=== PATIENT | female | born 1975 | race Caucasian/White ===

== ENCOUNTER 2017-04-02 18:19 | Emergency (ER) | payer MEDICARE, MEDICAID ==
[2014-04-01 01:23] VITALS: BMI 30.6
[~2017-04-02 18:19] MED LIST: ADVAIR 100/501 DISK INH; BAYER CHEWABLE81 MG PO; BRILINTA90 MG PO; CYMBALTA60 MG PO; DEPAKOTE250 MG PO; DEPAKOTE500 MG PO; MIRALAX17 GM PO; NITRO-DUR0.4 MG TD; NORCO 7.5/325 T1 TA1 PO; PEPCID40 MG PO; PROAIR HFA8.5 GM INH; VALIUM10 MG PO; ZOCOR40 MG PO
[2017-04-02 19:17] LABS: BASOPHILS 0.4 % (0-2); EOSINOPHILS 1.2 % (0-7); HEMATOCRIT 38.1 % (36.0-48.0); HEMOGLOBIN 13.2 g/dL (12-16); IMMATURE GRANULOCYTES 0.3 % (0-5); LYMPHOCYTES 36.8 % (15-50); MCH 31.8 pg (26.0-34.0); MCHC 34.6 g/dL (31.0-37.0); MCV 91.8 fL (80.0-100.0); MEAN PLATELET VOLUME 9.5 fL (7.4-10.4); MONOCYTES 7.7 % (2-11); NEUTROPHILS 53.6 % (40-80); PLATELET COUNT 245 10x3/uL (130-400); RBC 4.15 10x6/uL (4.00-5.40); RDW 13.4 % (11.5-14.5); WBC 10.4 10x3/uL (4.8-10.8)
[2017-04-02 19:55] LABS: ALBUMIN 3.7 g/dL (3.4-5.0); ALKALINE PHOSPHATASE 84 U/L (46-116); ALT (SGPT) 23 U/L (10-68); BILIRUBIN - TOTAL 0.25 mg/dL (0.2-1.3); CALC OSMOLALITY 272 mosm/kg (275-300); CALCIUM 8.8 mg/dL (8.5-10.1); CARBON DIOXIDE 24.5 mmol/L (21.0-32.0); CHLORIDE - SERUM 104 mmol/L (98-107); CREATININE - SERUM 0.9 mg/dL (0.6-1.3); GLUCOSE 80 mg/dL (74-106); PROTEIN - SERUM 7.2 g/dL (6.4-8.2); SODIUM 137 mmol/L (136-145); UREA NITROGEN 13 mg/dL (7-18); eGFR NON AFRICAN AMERICAN 72 mL/min (90-120)
[2017-04-02 19:59] LABS: UDS - AMPHET NEGATIVE QUAL (NEGATIVE); UDS - BARB NEGATIVE QUAL (NEGATIVE); UDS - BENZO NEGATIVE QUAL (NEGATIVE); UDS - COCAINE NEGATIVE QUAL (NEGATIVE); UDS - METH NEGATIVE QUAL (NEGATIVE); UDS - OPIATE NEGATIVE QUAL (NEGATIVE); UDS - PCP NEGATIVE QUAL (NEGATIVE); UDS - THC NEGATIVE QUAL (NEGATIVE)
[2017-04-02 20:05] LABS: CHOL - HDL RATIO 5.2 ratio (2.3-4.1); CHOLESTEROL, TOTAL 247 mg/dL (0-200); CKMB 0.5 U/L (0.0-3.6); CREATINE KINASE 77 UL (21-215); HDL CHOLESTEROL 48 mg/dL (32-96); LDL CHOLESTEROL 149 mg/dL (0-100); LDL-HDL RATIO 3.1 ratio (1.5-3.5); PRO BNP 73 pg/mL (0-125); TRIGLYCERIDE 251 mg/dL (30-200); TROPONIN-I < 0.017 ng/mL (0.000-0.060)
[2017-04-02 20:44] LABS: APPEARANCE CLOUDY (CLEAR)
[2017-04-02 20:45] LABS: BACTERIA MANY /hpf (NONE SEEN); BILIRUBIN NEGATIVE (NEGATIVE); COLOR YELLOW (YELLOW); EPITHELIAL CELLS 0-5 /hpf (0-5); GLUCOSE NEGATIVE (NEGATIVE); KETONE NEGATIVE (NEGATIVE); LEUKOCYTE ESTERASE 1+ (NEGATIVE); NITRITE POSITIVE (NEGATIVE); PROTEIN NEGATIVE (NEGATIVE); RED CELLS - URINE 0-5 /hpf (0-5); SPECIFIC GRAVITY 1.015 (1.005-1.020); UROBILINOGEN NORMAL (NORMAL)
[2017-04-02 23:00] LABS: CKMB 0.6 U/L (0.0-3.6); CREATINE KINASE 85 UL (21-215)
[2017-04-02 23:06] LABS: TROPONIN-I < 0.017 ng/mL (0.000-0.060)
== END 2017-04-02 23:33 | disposition left against medical advice (07) ==
LOC: D.ER 18:19
PROVIDERS: Emergency Medicine; Family Medicine
DX: R07.9 Chest pain, unspecified (principal); K21.9 Gastro-esophageal reflux disease without esophagitis; N39.0 Urinary tract infection, site not specified; F31.89 Other bipolar disorder; I50.9 Heart failure, unspecified; J44.9 Chronic obstructive pulmonary disease, unspecified; R53.81 Other malaise; R53.83 Other fatigue; R00.2 Palpitations; R06.00 Dyspnea, unspecified; R11.0 Nausea; F17.200 Nicotine dependence, unspecified, uncomplicated

== ENCOUNTER 2017-08-03 02:27 | Emergency (ER) | payer MEDICARE, MEDICAID ==
[2014-04-01 01:23] VITALS: BMI 30.6
== END 2017-08-03 03:10 | disposition home or self-care (01) ==
LOC: D.ER 02:27
DX: M54.5 Low back pain (principal); S29.012A Strain of muscle and tendon of back wall of thorax, initial encounter; X50.0XXA Overexertion from strenuous movement or load, initial encounter; Y93.89 Activity, other specified; Y92.019 Unspecified place in single-family (private) house as the place of occurrence of the external cause; S39.012A Strain of muscle, fascia and tendon of lower back, initial encounter; I50.9 Heart failure, unspecified; J44.9 Chronic obstructive pulmonary disease, unspecified; K21.9 Gastro-esophageal reflux disease without esophagitis; F17.200 Nicotine dependence, unspecified, uncomplicated

== ENCOUNTER 2017-09-15 13:32 | Emergency (ER) | payer MEDICARE, MEDICAID ==
[2014-04-01 01:23] VITALS: BMI 30.6
[2017-09-15 15:09] LABS: BASOPHILS 0.3 % (0-2); HEMATOCRIT 36.2 % (36.0-48.0); IMMATURE GRANULOCYTES 0.3 % (0-5); LYMPHOCYTES 32.9 % (15-50); MCH 30.5 pg (26.0-34.0); MCHC 33.1 g/dL (31.0-37.0); MCV 91.9 fL (80.0-100.0); MEAN PLATELET VOLUME 9.6 fL (7.4-10.4); MONOCYTES 6.7 % (2-11); NEUTROPHILS 58.8 % (40-80); PLATELET COUNT 258 10x3/uL (130-400); RBC 3.94 10x6/uL (4.00-5.40); RDW 14.4 % (11.5-14.5); WBC 9.9 10x3/uL (4.8-10.8)
[2017-09-15 15:54] LABS: ALBUMIN 3.6 g/dL (3.4-5.0); BILIRUBIN - TOTAL 0.15 mg/dL (0.2-1.3); CALCIUM 8.7 mg/dL (8.5-10.1); CARBON DIOXIDE 25.3 mmol/L (21.0-32.0); POTASSIUM - SERUM 4.3 mmol/L (3.5-5.1); PROTEIN - SERUM 7.5 g/dL (6.4-8.2)
== END 2017-09-15 17:08 | disposition home or self-care (01) ==
LOC: D.ER 13:32
PROVIDERS: Family Medicine; Physician Assistant Medical
DX: H66.92 Otitis media, unspecified, left ear (principal); M26.69 Other specified disorders of temporomandibular joint; F17.200 Nicotine dependence, unspecified, uncomplicated; I50.9 Heart failure, unspecified; J44.9 Chronic obstructive pulmonary disease, unspecified

== ENCOUNTER 2017-10-02 19:22 | Emergency (ER) | payer MEDICARE, MEDICAID ==
[2014-04-01 01:23] VITALS: BMI 30.6
== END 2017-10-02 21:08 | disposition home or self-care (01) ==
LOC: D.ER 19:22
DX: S16.1XXA Strain of muscle, fascia and tendon at neck level, initial encounter (principal); Y93.72 Activity, wrestling; Y93.89 Activity, other specified; Y92.019 Unspecified place in single-family (private) house as the place of occurrence of the external cause; M62.838 Other muscle spasm; J44.9 Chronic obstructive pulmonary disease, unspecified; K21.9 Gastro-esophageal reflux disease without esophagitis; F17.200 Nicotine dependence, unspecified, uncomplicated

== ENCOUNTER 2018-11-28 19:51 | Emergency (ER) | payer MEDICARE ==
[~2018-11-28] VITALS: Ht 170.2 cm; Wt 86.4 kg
[2018-11-28 19:55] VITALS: Ht 170.2 cm; Wt 86.4 kg
[2018-11-28 20:43] VITALS: BP 127/65
== END 2018-11-28 20:43 | disposition home or self-care (01) ==
LOC: D.ER 19:51
DX: F41.9 Anxiety disorder, unspecified (principal)

== ENCOUNTER 2019-09-08 18:56 | Emergency (ER) | payer MEDICARE, MEDICAID ==
[~2019-09-08] VITALS: Ht 170.2 cm; Wt 77.3 kg
[2019-09-08 19:03] VITALS: Ht 170.2 cm; Wt 77.3 kg
[2019-09-08] MEDS ORDERED: CYCLOBENZAPRINE10 MG PO (20:28)
[2019-09-08 20:44] VITALS: BP 117/67
== END 2019-09-08 20:44 | disposition home or self-care (01) ==
LOC: D.ER 18:56
DX: S16.1XXA Strain of muscle, fascia and tendon at neck level, initial encounter (principal); S93.401A Sprain of unspecified ligament of right ankle, initial encounter; S63.501A Unspecified sprain of right wrist, initial encounter; W19.XXXA Unspecified fall, initial encounter; Y93.9 Activity, unspecified; Y92.9 Unspecified place or not applicable; J44.9 Chronic obstructive pulmonary disease, unspecified; Z72.0 Tobacco use

== ENCOUNTER 2019-09-17 15:23 | Emergency (ER) | payer MEDICARE, MEDICAID ==
[~2019-09-17] VITALS: Ht 170.2 cm; Wt 77.3 kg
[~2019-09-17 15:23] MED LIST changes: +CYCLOBENZAPRINE10 MG PO
[2019-09-17 15:36] VITALS: Ht 170.2 cm; Wt 77.3 kg
[2019-09-17 16:07] LABS: UDS - AMPHET NEGATIVE QUAL (NEGATIVE); UDS - BARB NEGATIVE QUAL (NEGATIVE); UDS - BENZO NEGATIVE QUAL (NEGATIVE); UDS - COCAINE NEGATIVE QUAL (NEGATIVE); UDS - OPIATE POSITIVE QUAL (NEGATIVE); UDS - PCP NEGATIVE QUAL (NEGATIVE); UDS - THC NEGATIVE QUAL (NEGATIVE)
[2019-09-17 16:09] LABS: APPEARANCE CLEAR (CLEAR); BILIRUBIN NEGATIVE (NEGATIVE); COLOR YELLOW (YELLOW); GLUCOSE NEGATIVE (NEGATIVE); KETONE NEGATIVE (NEGATIVE); NITRITE NEGATIVE (NEGATIVE); PROTEIN NEGATIVE (NEGATIVE); UROBILINOGEN NORMAL (NORMAL)
[2019-09-17 16:10] LABS: BASOPHILS 0.7 % (0-2); EOSINOPHILS 1.8 % (0-7); HEMATOCRIT 40.5 % (36.0-48.0); HEMOGLOBIN 13.6 g/dL (12-16); IMMATURE GRANULOCYTES 0.3 % (0-5); LYMPHOCYTES 39.5 % (15-50); MCHC 33.6 g/dL (31.0-37.0); MCV 92.3 fL (80.0-100.0); MEAN PLATELET VOLUME 10.1 fL (7.4-10.4); MONOCYTES 6.7 % (2-11); RBC 4.39 10x6/uL (4.00-5.40); RDW 13.8 % (11.5-14.5); WBC 9.1 10x3/uL (4.8-10.8)
[2019-09-17 16:10] LABS: BACTERIA FEW /hpf (NEGATIVE); WHITE CELLS - URINE 0-5 /hpf (NEGATIVE)
[2019-09-17 16:11] LABS: PLATELET COUNT 200 10x3/uL (130-400)
--- NOTE | 2019-09-17 16:16 | NUR ---
PT IS A MODERATE RISK FOR SUICIDE PER ASSESSMENT DUE TO HISTORY. PT DENIES SI AT THIS TIME BUT DOES EXPRESS WISH TO GO TO SLEEP AND NOT WAKE UP. PT AGREES TO CONTRACT FOR SAFETY WHILE IN THE HOSPITAL. PT STATED, "I REALLY JUST NEED SOMETHING FOR MY NERVES. I AM NOT GOING TO HURT MYSELF." RESOURCES GIVEN AND PT EXPRESSED UNDERSTANDING. PT IS AGREEABLE TO GO TO A FACILITY IF NEEDED TO GET MEDICATIONS RESTARTED. PT STATED SHE HAS NOT HAD HER MEDICATION SINCE [facility] CL[facility] A YEAR AGO. PT WAS UNABLE TO GO TO ANYWHERE ELSE FOR OUTPT THERAPY DUE TO INSURANCE ISSUES. PT HAS NOW A NEW INSURANCE AND WENT TO THERAPY TODAY BUT WAS SENT TO EMERGENCY ROOM FOR HELP. PT HAS A LONG HX OF PSYCH ILLNESSES. RELAYED RESULTS TO ATTENDING AND DR. TRIPATHI. NO SITTER AT THIS TIME.
[2019-09-17 16:21] LABS: CALC OSMOLALITY 280 mosm/kg (275-300); CALCIUM 8.5 mg/dL (8.5-10.1); CARBON DIOXIDE 24.8 mmol/L (21.0-32.0); CHLORIDE - SERUM 106 mmol/L (98-107); CREATININE - SERUM 0.8 mg/dL (0.6-1.3); GLUCOSE 84 mg/dL (74-106); POTASSIUM - SERUM 4.7 mmol/L (3.5-5.1); SODIUM 140 mmol/L (136-145); UREA NITROGEN 20 mg/dL (7-18); eGFR NON AFRICAN AMERICAN 82 mL/min (90-120)
[2019-09-17 16:27] LABS: ALBUMIN 3.6 g/dL (3.4-5.0); ALKALINE PHOSPHATASE 91 U/L (30-120); ALT (SGPT) 33 U/L (10-68); BILIRUBIN - TOTAL 0.22 mg/dL (0.2-1.3); MAGNESIUM - SERUM 2.2 mg/dL (1.8-2.4)
[2019-09-18 06:58] VITALS: BP 100/64
[2019-09-18 08:37] LABS: HCG URINE NEGATIVE (NEGATIVE)
== END 2019-09-18 10:32 ==
LOC: D.ER 15:23
PROVIDERS: Family Medicine
DX: R45.851 Suicidal ideations (principal); Z59.0 Homelessness; R51 Headache; M54.2 Cervicalgia; M25.539 Pain in unspecified wrist; M25.579 Pain in unspecified ankle and joints of unspecified foot; W19.XXXA Unspecified fall, initial encounter; Y93.9 Activity, unspecified; Y92.9 Unspecified place or not applicable

== ENCOUNTER 2019-11-23 13:23 | Emergency (ER) | payer MEDICARE, MEDICAID ==
[2019-11-23 13:28] VITALS: BP 126/58; Ht 170.2 cm
== END 2019-11-23 14:05 | disposition left against medical advice (07) ==
LOC: D.ER 13:23
DX: Z76.5 Malingerer [conscious simulation] (principal)